=== PATIENT | male | born 1975 | race Asian ===

== ENCOUNTER 2017-06-30 14:42 | Emergency (ER) | payer BC ==
[~2017-06-30] VITALS: Ht 172.7 cm; Wt 136.1 kg
[~2017-06-30 14:42] MED LIST: LISI20TA11 PO
[2017-06-30 14:47] VITALS: BP 177/96; TEMP 98.1
== END 2017-06-30 15:04 | disposition home or self-care (01) ==
LOC: ED 14:42
DX: M79.605 Pain in left leg (principal)
CPT/HCPCS: 99281

== ENCOUNTER 2020-02-23 10:16 | Outpatient (CLI) | payer BC | END 2020-02-23 19:08 | disposition home or self-care (01) | LOC: RAD 10:16 | DX: R05 Cough (principal) ==

== ENCOUNTER 2020-08-25 10:45 | Outpatient (CLI) | payer BC ==
[2020-08-25 12:02] LABS: PLATELET COUNT 276 K/uL (142-355)
[2020-08-25 13:41] LABS: POTASSIUM 3.7 mmol/L (3.6-5.2)
== END 2020-08-25 12:00 | disposition home or self-care (01) ==
LOC: LABW 10:45
PROVIDERS: ATTEND Family Medicine
DX: R10.9 Unspecified abdominal pain (principal); K21.9 Gastro-esophageal reflux disease without esophagitis; I10 Essential (primary) hypertension; J45.909 Unspecified asthma, uncomplicated; R53.83 Other fatigue; R06.02 Shortness of breath; R29.818 Other symptoms and signs involving the nervous system; E78.5 Hyperlipidemia, unspecified
CPT/HCPCS: 36415; 80053; 80061; 81000; 82043; 82150; 82306; 82570; 82607; 82746; 83036; 83690; 84439; 84443; 85027; 93005

== ENCOUNTER 2020-08-26 13:10 | Outpatient (CLI) | payer BC | END 2020-08-26 16:00 | disposition home or self-care (01) | LOC: CT 13:10 | PROVIDERS: ATTEND Nurse Practitioner Family | DX: R10.9 Unspecified abdominal pain (principal); K21.9 Gastro-esophageal reflux disease without esophagitis; I10 Essential (primary) hypertension; J45.909 Unspecified asthma, uncomplicated; R53.83 Other fatigue | CPT/HCPCS: Q9963 ==

== ENCOUNTER 2021-05-09 11:55 | Outpatient (CLI) | payer BC | END 2021-05-09 22:08 | disposition home or self-care (01) | LOC: RAD 11:55 | PROVIDERS: ATTEND Nurse Practitioner Family | DX: R10.9 Unspecified abdominal pain (principal); I10 Essential (primary) hypertension; E78.5 Hyperlipidemia, unspecified; K21.9 Gastro-esophageal reflux disease without esophagitis; R10.811 Right upper quadrant abdominal tenderness ==

== ENCOUNTER 2021-05-18 09:17 | Outpatient (CLI) | payer BC | END 2021-05-18 19:35 | disposition home or self-care (01) | LOC: CT 09:17 | PROVIDERS: ATTEND Nurse Practitioner Family | DX: R10.9 Unspecified abdominal pain (principal); I10 Essential (primary) hypertension; E78.5 Hyperlipidemia, unspecified; K21.9 Gastro-esophageal reflux disease without esophagitis; R10.811 Right upper quadrant abdominal tenderness | CPT/HCPCS: 36415; 82565; 84520; Q9963 ==

== ENCOUNTER 2021-06-14 08:06 | Outpatient (CLI) | payer BC ==
[2021-06-14 08:44] LABS: PLATELET COUNT 256 K/uL (142-355)
[2021-06-14 08:57] LABS: POTASSIUM 4.2 mmol/L (3.6-5.2)
== END 2021-06-14 19:02 | disposition home or self-care (01) ==
LOC: LABW 08:06
PROVIDERS: ATTEND Surgery
DX: K82.8 Other specified diseases of gallbladder (principal); Z11.52 Encounter for screening for COVID-19
CPT/HCPCS: 36415; 80053; 85027; 87635; 93005; G2023; U0003

== ENCOUNTER 2021-08-19 09:55 | Outpatient (CLI) | payer BC | END 2021-08-19 19:58 | disposition home or self-care (01) | LOC: US 09:55 | PROVIDERS: ATTEND Internal Medicine | DX: N18.2 Chronic kidney disease, stage 2 (mild) (principal) ==

== ENCOUNTER 2022-08-22 09:55 | Outpatient (CLI) | payer BC | END 2022-08-22 19:00 | disposition home or self-care (01) | LOC: CT 09:55 | PROVIDERS: ATTEND Nurse Practitioner Family | DX: R10.11 Right upper quadrant pain (principal) | CPT/HCPCS: 36415; 82565; 84520 ==

== ENCOUNTER 2022-08-25 07:44 | Outpatient (CLI) | payer BC | END 2022-08-25 19:08 | disposition home or self-care (01) | LOC: CT 07:44 | PROVIDERS: ATTEND Nurse Practitioner Family | DX: R10.11 Right upper quadrant pain (principal) | CPT/HCPCS: Q9963 ==

== ENCOUNTER 2022-10-03 05:10 | Emergency (ER) | payer BC ==
[~2022-10-03] VITALS: Ht 172.7 cm; Wt 161.5 kg
[2022-10-03 05:10] VITALS: BP 115/47; TEMP 97.6
[2022-10-03 05:32] LABS: PLATELET COUNT 283 K/uL (142-355)
[2022-10-03 05:43] LABS: POTASSIUM 3.6 mmol/L (3.6-5.2)
== END 2022-10-03 10:06 | disposition home or self-care (01) ==
LOC: ED 05:10
PROVIDERS: Family Medicine
DX: R10.9 Unspecified abdominal pain (principal); R11.2 Nausea with vomiting, unspecified
CPT/HCPCS: 80053; 81002; 82150; 83605; 83690; 84484; 85027; 93005; 96361; 96374; 96375; 96376; 99284; J1885; J2270; J2405; Q9963